=== PATIENT | female | born 2005 | race Caucasian/White ===

== ENCOUNTER 2024-06-28 06:30 | Inpatient (IN) ==
[2024-06-29] MEDS ORDERED: REGLAN INJ 10 MG VIAL IVP PRN ×2 (06:40→17:47)
[2024-06-29] MEDS ORDERED: NUBAIN INJ 20 MG AMP IVP PRN (06:40)
[2024-06-29] MEDS ORDERED: PITOCIN IVP ONE (06:40)
[2024-06-29] MEDS ORDERED: ZOFRAN INJ 4 MG VIAL IVP PRN ×2 (06:40→17:47)
[2024-06-29] MEDS ORDERED: AMPICILLIN VIAL 1 GRAM 1 G in NS 50 ML IV + SPIKE MINIBAG* 50 ML IV SCH (06:40)
[2024-06-29] MEDS ORDERED: VISBIOME PROBIOTIC CAP 112.5 B or equivalent PO SCH (06:40)
[2024-06-29] MEDS: D5 1/2 NS 1,000 ML 1,000 ML IV SCH (06:50)
[2024-06-29 07:15] LABS: BASOPHILS % (AUTO) 0.3 % (0.2-1.0); EOSINOPHILS # (AUTO) 0.1 x10^3/uL (0.0-0.2); EOSINOPHILS % (AUTO) 0.8 % (0.9-2.9); HEMATOCRIT 31.8 % (36.0-47.0); HEMOGLOBIN 10.3 g/dL (12.0-16.0); LYMPHOCYTES % (AUTO) 18.2 % (21.0-51.0); MEAN CORPUSCULAR HEMOGLOBIN 25.6 pg (27.0-34.0); MEAN CORPUSCULAR HGB CONC 32.2 g/dL (33.0-35.0); MEAN CORPUSCULAR VOLUME 79.5 fL (80.0-100.0); MEAN PLATELET VOLUME 11.8 fL (7.4-11.0); MONOCYTES # (AUTO) 0.9 x10^3/uL (0.3-0.8); MONOCYTES % (AUTO) 7.9 % (0.0-13.0); NEUTROPHILS % (AUTO) 72.8 % (42.0-75.0); PLATELET COUNT 215 X10^3/uL (150.0-450.0); RED CELL DISTRIBUTION WIDTH 15.1 % (11.6-16.5)
--- NOTE | 2024-06-29 07:17 | DR.OB ---
OB QUICK NOTE Assessment/Plan (1) Elective induction of labor planned: Assessment/Plan: L&D 06/29/24 at 7:10am S-No complaint. O-Afebrile,VSS ZRK=[id number] with good LTV, +accel, no decel. CTX=q 1 1/2 to 3 min., mild by palpation CVX=3-4cm/50%/-1/VTX AROM with clear fluid. IUPC and FSE placed. A-IUP at 38 3/7 weeks for induction PIH +GBS Rh- P-Begin pitocin induction IV ABX in labor F/U labs Anticipate (2) induced hypertension:
[2024-06-29 07:20] LABS: INR 0.97 (0.8-1.3)
[2024-06-29 07:23] LABS: ALANINE AMINOTRANSFERASE 14 Units/L (12-78); ASPARTATE AMINO TRANSFERASE 14 Units/L (15-37); BLOOD UREA NITROGEN 11 mg/dL (7-18); CALCIUM 8.4 mg/dL (8.5-10.1); CARBON DIOXIDE 22.9 mmol/L (21-32); CHLORIDE 106 mmol/L (98-107); CREATININE 0.75 mg/dL (0.55-1.02); GLUCOSE 82 mg/dL (65-99); LACTATE DEHYDROGENASE 189 Units/L (81-234); POTASSIUM 3.6 mmol/L (3.5-5.1); SODIUM 138 mmol/L (136-145); URIC ACID 7.1 mg/dL (2.6-6.0); eGFR NON BLACK RACES > 60 (>60)
[2024-06-29] MEDS: AMPICILLIN VIAL 2 GRAM 2 G in NS 100 ML IV + SPIKE MINIBAG* 100 ML IV SCH (07:25)
[2024-06-29] MEDS: NS 1,000 ML IV 1,000 ML IV ONE (07:25)
[2024-06-29] MEDS: LR 1,000 ML IV 1,000 ML IV ONE (07:45)
[2024-06-29] MEDS: AMPICILLIN VIAL 2 GRAM ONE (08:13)
[2024-06-29] MEDS: NS 100 ML IV 100 ML ONE ×2 (08:13→14:19)
[2024-06-29] MEDS: NAROPIN EPIDURAL 0.2% 100 ML ONE (09:16)
[2024-06-29] MEDS: FENTANYL VIAL INJ 100 mcg ONE (09:16)
[2024-06-29] MEDS: PITOCIN ONE ×3 (09:23→14:20)
[2024-06-29] MEDS: OXYTOCIN 20 UNIT/1,000 ML-NS 20 UNIT/1,000 ML PLAST..BAG IV PRN (10:15)
[2024-06-29] MEDS: NS 1,000 ML IV 1,000 ML ONE ×2 (10:29→14:21)
[2024-06-29] MEDS ORDERED: AMPICILLIN VIAL 1 GRAM 1 G in NS 100 ML IV 100 ML IV SCH (12:00)
[2024-06-29] MEDS: BETADINE SOLN ONE (12:38)
[2024-06-29] MEDS ORDERED: MOTRIN TAB 800 MG PO PRN ×2 (12:49→13:59)
[2024-06-29] MEDS ORDERED: OXYTOCIN 20 UNIT/1,000 ML-NS 20 UNIT/1,000 ML PLAST..BAG IV SCH ×2 (13:00→14:00)
--- NOTE | 2024-06-29 13:59 | DR.OB ---
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 Mother in pain and having difficulty cooperating with pushing. Head delivered over intact perineum. No nuchal cord. Nose and mouth bulb suctioned. Body delivered over intact perineum. Cord clamped x 2 and cut. Infant handed to attendant. Cord sent for gases. Placenta delivered spontaeously / intact / 3 vessel cord. No CVX / vaginal / perineal tears. Viable male delivered by , VTX/OA, wt=8'4" and 5/9, stable to NBN. Mother stable to RR. [id number]. (2) induced hypertension:
[2024-06-29] MEDS ORDERED: HYPERRHO S/D (or RHOGAM) IM PRN (14:03)
[2024-06-29] MEDS ORDERED: DERMOPLAST PAIN RELIEF SPRAY TOP PRN ×2 (14:03→17:44)
[2024-06-29] MEDS ORDERED: MILK OF MAGNESIA PO PRN (14:03)
[2024-06-29] MEDS ORDERED: AMBIEN PO PRN ×2 (14:03→17:45)
[2024-06-29] MEDS: AMPICILLIN VIAL 1 GRAM ONE (14:19)
[2024-06-29] MEDS: MARCAINE 0.25% INJ ONE (14:20)
[2024-06-29] MEDS ORDERED: PERCOCET TAB 5/325 MG PO PRN ×2 (16:23→17:48)
[2024-06-29] MEDS: MOTRIN TAB 800 MG PO PRN (16:55)
[2024-06-29] MEDS: HYPERRHO S/D (or RHOGAM) IM ONE (16:55)
[2024-06-29] MEDS: MOTRIN TAB 800 MG PO ONE (16:55)
[2024-06-29] MEDS: ADACEL or BOOSTRIX TDaP VACCINE IM ONE (16:55)
[2024-06-30 05:10] LABS: HEMATOCRIT 26.6 % (36.0-47.0); HEMOGLOBIN 8.7 g/dL (12.0-16.0)
[2024-06-30] MEDS: PRENATAL PLUS PO SCH (08:30)
[2024-06-30] MEDS: VISBIOME PROBIOTIC CAP 112.5 B or equivalent PO SCH (08:30)
[2024-06-30] MEDS: MILK OF MAGNESIA PO PRN (08:31)
[2024-06-30] MEDS ORDERED: PRENATAL PLUS PO SCH (09:00)
[2024-06-30] MEDS: NORMODYNE TAB 200 MG PO SCH (10:23)
[2024-06-30] MEDS: FERROUS GLUCONATE PO SCH (17:28)
[2024-07-01 12:28] VITALS: BP 170/94; PULSE 72; RESP 19; TEMP 97.9; O2SAT 99
== END 2024-07-01 12:00 | disposition home or self-care (01) | DRG 806 ==
LOC: LD 06-29 06:21 → MED/SURG 06-29 15:52
PROVIDERS: ADMIT Specialist; ATTEND Specialist